=== PATIENT | female | born 1940 | race Caucasian/White ===

== ENCOUNTER 2018-11-20 02:36 | Emergency (ER) | payer MEDICAID, MEDICARE, OTHER ==
[~2018-11-20] VITALS: Ht 152.4 cm; Wt 86.9 kg
[2018-11-20 05:07] VITALS: BP 141/66
== END 2018-11-20 05:10 ==
LOC: ED 05:04
DX: B37.3 Candidiasis of vulva and vagina (principal); I10 Essential (primary) hypertension; Z90.49 Acquired absence of other specified parts of digestive tract; Z90.710 Acquired absence of both cervix and uterus
CPT/HCPCS: 36415; 74176; 80053; 81001; 83690; 85025; 87086; 99284